=== PATIENT | female | born 1945 | race Caucasian/White ===

== ENCOUNTER → 2016-06-12 | Outpatient (CLI) | payer OTHER, MEDICARE ==
[~2016-06-12] MED LIST: IOPAMIDOL (ISOVUE-300) 100 ML BTL IV ONE
[2016-06-12 15:19] LABS: GLOMERULAR FILTRATION RATE > 60
[2016-06-12 15:21] LABS: CREATININE 0.8 mg/dL (0.6-1.0)
== END ==
LOC: FIMAGING 14:24
PROVIDERS: ATTEND Family Medicine
DX: K76.9 Liver disease, unspecified (principal); D18.03 Hemangioma of intra-abdominal structures
CPT/HCPCS: 74160; Q9967

== ENCOUNTER → 2018-02-09 | Outpatient (CLI) | payer OTHER, MEDICARE | LOC: FIMAGING 15:57 | DX: M26.609 Unspecified temporomandibular joint disorder, unspecified side (principal) ==